=== PATIENT | female | born 1940 | race Caucasian/White ===

== ENCOUNTER 2018-08-15 22:01 | Emergency (ER) | payer OTHER ==
[~2018-08-15] VITALS: Ht 152.4 cm; Wt 73.2 kg
[2018-08-15] MEDS ORDERED: LOSA50TA64 PO (22:05)
[2018-08-15 22:23] LABS: EOSINOPHILS % (AUTO) 1.4 % (1.0-6.0); HEMATOCRIT 37.5 % (36-46); HEMOGLOBIN 12.8 g/dL (12.0-16.0); LYMPHOCYTES # (AUTO) 2.4 K/uL (1.0-4.8); LYMPHOCYTES % (AUTO) 35.9 % (22.0-44.0); MEAN CORPUSCULAR HEMOGLOBIN 30.2 pg (26.0-34.0); MEAN CORPUSCULAR VOLUME 89 fL (80-100); MONOCYTES # (AUTO) 0.9 K/uL (0.1-1.0); MONOCYTES % (AUTO) 13.3 % (2.0-9.0); NEUTROPHILS # (AUTO) 3.2 K/uL (1.8-7.7); NEUTROPHILS % (AUTO) 48.4 % (40.0-70.0); PLATELET COUNT (AUTO) 247 K/uL (150-450); RED BLOOD CELL COUNT(AUTO) 4.23 MIL/uL (4.00-5.20); RED CELL DISTRIBUTION WIDTH 12.9 % (11.5-14.5)
[2018-08-15 22:37] LABS: ANION GAP 10 mmol/L (8-16); CARBON DIOXIDE 26 mmol/L (22-29); CHLORIDE 102 mmol/L (98-107); CREATININE 0.79 mg/dL (0.60-1.30); GLUCOSE,RANDOM 109 mg/dL (70-110); SODIUM SERUM 138 mmol/L (136-145); UREA NITROGEN, BLOOD 27 mg/dL (7-18)
[2018-08-15 22:38] LABS: GLOMERULAR FILTR. RATE CALC > 60 mL/min (>60)
[2018-08-15 22:44] LABS: ALANINE AMINOTRANSFERASE 26 U/L (12-78); ALBUMIN 3.2 g/dL (3.4-5.0); ALKALINE PHOSPHATASE 101 U/L (46-116); ASPARTATE AMINOTRANSFERASE 28 U/L (15-37); BILIRUBIN,TOTAL 0.4 mg/dL (0.1-1.0); TOTAL PROTEIN, SERUM 7.1 g/dL (6.4-8.2)
[2018-08-16] MEDS ORDERED: SODIUM CHLORIDE 0.9% 100 ML ONE (00:45)
[2018-08-16] MEDS ORDERED: SODIUM CHLORIDE 0.9% 1,000 ML IV ONE (00:45)
[2018-08-16] MEDS ORDERED: IOVERSOL 350 MG/ML 100 ML VIAL ONE (00:45)
[2018-08-16 04:28] VITALS: BP 140/71
== END 2018-08-16 04:32 | disposition home or self-care (01) ==
LOC: EMS 22:02
DX: R07.89 Other chest pain (principal); M54.2 Cervicalgia; M79.602 Pain in left arm; I10 Essential (primary) hypertension; M19.90 Unspecified osteoarthritis, unspecified site; Z90.49 Acquired absence of other specified parts of digestive tract
CPT/HCPCS: 36415; 71045; 71275; 80053; 84484; 85025; 93005; 99284; J7030; J7050; Q9967

== ENCOUNTER 2022-03-17 15:17 | Emergency (ER) | payer OTHER ==
[~2022-03-17] VITALS: Ht 162.6 cm; Wt 76.4 kg
[~2022-03-17 15:17] MED LIST: LOSA-382 PO
[2022-03-17 15:37] VITALS: BP 138/68
[2022-03-17] MEDS ORDERED: MELO-108 PO (16:59)
== END 2022-03-17 18:53 | disposition left against medical advice (07) ==
LOC: EMS 15:19
DX: S61.412A Laceration without foreign body of left hand, initial encounter (principal); Z53.21 Procedure and treatment not carried out due to patient leaving prior to being seen by health care provider

== ENCOUNTER 2022-08-01 12:55 | Emergency (ER) | payer OTHER ==
[~2022-08-01] VITALS: Ht 157.5 cm; Wt 68.2 kg
[~2022-08-01 12:55] MED LIST changes: +MELO-108 PO
[2022-08-01 18:00] VITALS: BP 146/71
== END 2022-08-01 18:16 | disposition home or self-care (01) ==
LOC: EMS 14:11
DX: S62.635A Displaced fracture of distal phalanx of left ring finger, initial encounter for closed fracture (principal); S60.444A External constriction of right ring finger, initial encounter; M19.90 Unspecified osteoarthritis, unspecified site; I10 Essential (primary) hypertension; W19.XXXA Unspecified fall, initial encounter; Y93.89 Activity, other specified; Y92.89 Other specified places as the place of occurrence of the external cause; Y99.8 Other external cause status
CPT/HCPCS: 71046; 99284